=== PATIENT | female | born 1955 | race Caucasian/White ===

== ENCOUNTER 2021-10-24 08:47 | Inpatient (IN) ==
[2021-10-24] MEDS ORDERED: Naloxone 0.4 MG/ML INJ IVP PRN (11:21)
[2021-10-24] MEDS ORDERED: Ipratropium/Albuterol Neb 3 ML IH PRN (14:01)
[2021-10-24] MEDS ORDERED: *HR* Dextrose 50 % in Water (Syg) 50 ML SYRINGE IVP PRN (14:38)
[2021-10-24] MEDS ORDERED: Dextrose 4 GM Chewable Tablets PO PRN ×2 (14:38)
[2021-10-24] MEDS ORDERED: D5% in Water 1,000 ML IVC PRN (14:38)
[2021-10-24] MEDS ORDERED: tiZANidine 4 MG TABLET PO PRN (14:39)
[2021-10-24] MEDS: Gabapentin 400 MG CAPSULE PO SCH ×2 (17:24→20:25)
[2021-10-24] MEDS: Insulin LISPRO 300 UNITS/3 ML VIAL SUBQ SCH ×2 (17:25→20:23)
[2021-10-24] MEDS: MethylPREDNISolone 40 MG/ML VIAL IVP SCH ×2 (17:25→23:47)
[2021-10-24] MEDS ORDERED: Acetaminophen 325 MG TABLET PO PRN (18:00)
[2021-10-24] MEDS: rOPINIRole 1 MG TABLET PO SCH (20:25)
[2021-10-24] MEDS: Torsemide 20 MG TABLET PO SCH (20:26)
[2021-10-24] MEDS: traZODone 50 MG TABLET PO SCH (20:26)
[2021-10-24] MEDS ORDERED: Insulin DETEMIR 100 UNIT/ML X5UNITS SUBQ SCH (21:00)
[2021-10-25 02:32] LABS: Basophils % 0.2 %; Eosinophils % 0.2 %; Hematocrit 31.7 % (35.3-44.9); Hemoglobin 9.7 g/dL (11.5-15.4); Immature Granulocytes % 0.9 % (0-4); Lymphocytes # 0.7 K/mcL (0.6-4.6); Lymphocytes % 16.3 %; Mean Corpuscular HGB Conc 30.6 g/dL (31.6-35.5); Mean Corpuscular Hemoglobin 29.9 pg (28.0-33.3); Mean Corpuscular Volume 97.8 fL (83.0-100.0); Mean Platelet Volume 11.6 fL (9.4-12.4); Monocytes # 0.1 K/mcL (0.0-1.3); Monocytes % 2.3 %; Neutrophils # 3.5 K/mcL (1.6-8.9); Platelet Count 182 K/mcL (140-400); Red Blood Count 3.24 M/mcL (3.82-4.97); Red Cell Distribution Width 14.4 % (11.5-14.5); Segmented Neutrophils % 80.1 %; White Blood Count 4.4 K/mcL (4.3-11.1)
[2021-10-25 02:55] LABS: Calcium 8.6 mg/dL (8.6-10.3); Potassium 4.3 mEq/L (3.5-5.1)
[2021-10-25] MEDS: *HR* Enoxaparin 40 MG/0.4 ML SYRINGE SQ SCH (05:20)
[2021-10-25] MEDS: MethylPREDNISolone 40 MG/ML VIAL IVP SCH (08:46)
[2021-10-25] MEDS: Torsemide 20 MG TABLET PO SCH (08:47)
[2021-10-25] MEDS: Gabapentin 400 MG CAPSULE PO SCH ×4 (08:47→19:51)
[2021-10-25] MEDS: Insulin LISPRO 300 UNITS/3 ML VIAL SUBQ SCH ×4 (08:47→19:54)
[2021-10-25] MEDS ORDERED: cefTRIAXone 1,000 MG in 0.9 % Sodium Chloride 10 ML IVP SCH (09:00)
[2021-10-25] MEDS: Insulin DETEMIR 100 UNIT/ML X5UNITS SUBQ SCH ×2 (09:40→19:51)
[2021-10-25] MEDS ORDERED: Semaglutide [Ozempic] 0.25 MG/0.2 ML SQ SCH (17:00)
[2021-10-25] MEDS: rOPINIRole 1 MG TABLET PO SCH (19:51)
[2021-10-25] MEDS: traZODone 50 MG TABLET PO SCH (19:51)
[2021-10-26 03:13] LABS: Basophils % 0.5 %; Hematocrit 31.3 % (35.3-44.9); Hemoglobin 9.9 g/dL (11.5-15.4); Immature Granulocytes % 1.2 % (0-4); Lymphocytes # 1.1 K/mcL (0.6-4.6); Lymphocytes % 27.3 %; Mean Corpuscular HGB Conc 31.6 g/dL (31.6-35.5); Mean Corpuscular Hemoglobin 30.1 pg (28.0-33.3); Mean Corpuscular Volume 95.1 fL (83.0-100.0); Monocytes # 0.5 K/mcL (0.0-1.3); Monocytes % 10.8 %; Neutrophils # 2.5 K/mcL (1.6-8.9); Platelet Count 207 K/mcL (140-400); Red Blood Count 3.29 M/mcL (3.82-4.97); Red Cell Distribution Width 13.9 % (11.5-14.5); Segmented Neutrophils % 60.2 %; White Blood Count 4.2 K/mcL (4.3-11.1)
[2021-10-26 03:37] LABS: Potassium 4.1 mEq/L (3.5-5.1)
[2021-10-26] MEDS: *HR* Enoxaparin 40 MG/0.4 ML SYRINGE SQ SCH (06:10)
[2021-10-26] MEDS: MethylPREDNISolone 40 MG/ML VIAL IVP SCH (08:31)
[2021-10-26] MEDS: Gabapentin 400 MG CAPSULE PO SCH ×4 (08:32→21:41)
[2021-10-26] MEDS: Insulin DETEMIR 100 UNIT/ML X5UNITS SUBQ SCH ×2 (08:32→21:40)
[2021-10-26] MEDS: Insulin LISPRO 300 UNITS/3 ML VIAL SUBQ SCH ×4 (08:32→21:40)
[2021-10-26] MEDS: 0.9 % Sodium Chloride 1,000 ML IVC SCH (10:27)
[2021-10-26] MEDS: *HR* OxyCODONE Immed Rel 15 MG TABLET PO PRN ×2 (10:51→21:41)
[2021-10-26] MEDS: Ipratropium/Albuterol Neb 3 ML IH SCH ×4 (11:16→23:54)
[2021-10-26] MEDS ORDERED: Ondansetron 4 MG/2 ML VIAL IVP PRN (11:50)
[2021-10-26] MEDS: Ondansetron 4 MG/2 ML VIAL IVP PRN (12:06)
[2021-10-26] MEDS: Benzonatate 100 MG CAPSULE PO PRN (12:16)
[2021-10-26] MEDS: rOPINIRole 1 MG TABLET PO SCH (21:41)
[2021-10-26] MEDS: traZODone 50 MG TABLET PO SCH (21:41)
[2021-10-27] MEDS: 0.9 % Sodium Chloride 1,000 ML IVC SCH (00:06)
[2021-10-27] MEDS: Ipratropium/Albuterol Neb 3 ML IH SCH ×5 (03:43→20:09)
[2021-10-27] MEDS: *HR* Enoxaparin 40 MG/0.4 ML SYRINGE SQ SCH (05:28)
[2021-10-27 07:53] LABS: Basophils % 0.2 %; Eosinophils % 0.4 %; Hematocrit 32.7 % (35.3-44.9); Hemoglobin 10.1 g/dL (11.5-15.4); Immature Granulocytes % 1.1 % (0-4); Lymphocytes # 1.7 K/mcL (0.6-4.6); Lymphocytes % 32.8 %; Mean Corpuscular HGB Conc 30.9 g/dL (31.6-35.5); Mean Corpuscular Hemoglobin 29.6 pg (28.0-33.3); Mean Corpuscular Volume 95.9 fL (83.0-100.0); Mean Platelet Volume 11.7 fL (9.4-12.4); Monocytes # 0.4 K/mcL (0.0-1.3); Monocytes % 6.9 %; Neutrophils # 3.1 K/mcL (1.6-8.9); Platelet Count 209 K/mcL (140-400); Red Blood Count 3.41 M/mcL (3.82-4.97); Red Cell Distribution Width 14.3 % (11.5-14.5); Segmented Neutrophils % 58.6 %; White Blood Count 5.2 K/mcL (4.3-11.1)
[2021-10-27] MEDS: Gabapentin 400 MG CAPSULE PO SCH ×4 (08:24→20:52)
[2021-10-27] MEDS: Insulin LISPRO 300 UNITS/3 ML VIAL SUBQ SCH ×4 (08:25→20:55)
[2021-10-27] MEDS: Insulin DETEMIR 100 UNIT/ML X5UNITS SUBQ SCH ×2 (08:25→20:55)
[2021-10-27] MEDS: MethylPREDNISolone 40 MG/ML VIAL IVP SCH (08:25)
[2021-10-27 09:38] LABS: Calcium 8.8 mg/dL (8.6-10.3); Potassium 4.6 mEq/L (3.5-5.1)
[2021-10-27] MEDS: Ondansetron 4 MG/2 ML VIAL IVP PRN (12:39)
[2021-10-27] MEDS: rOPINIRole 1 MG TABLET PO SCH (20:52)
[2021-10-27] MEDS: traZODone 50 MG TABLET PO SCH (20:53)
[2021-10-27] MEDS: *HR* OxyCODONE Immed Rel 15 MG TABLET PO PRN (20:54)
[2021-10-28] MEDS: Ipratropium/Albuterol Neb 3 ML IH SCH ×6 (00:06→20:40)
[2021-10-28] MEDS: *HR* Enoxaparin 40 MG/0.4 ML SYRINGE SQ SCH (05:34)
[2021-10-28 06:06] LABS: Basophils % 0.4 %; Eosinophils % 0.1 %; Hematocrit 35.4 % (35.3-44.9); Hemoglobin 10.6 g/dL (11.5-15.4); Lymphocytes # 1.6 K/mcL (0.6-4.6); Lymphocytes % 21.5 %; Mean Corpuscular HGB Conc 29.9 g/dL (31.6-35.5); Mean Corpuscular Volume 100.3 fL (83.0-100.0); Mean Platelet Volume 11.8 fL (9.4-12.4); Monocytes # 0.6 K/mcL (0.0-1.3); Monocytes % 7.7 %; Neutrophils # 5.1 K/mcL (1.6-8.9); Platelet Count 243 K/mcL (140-400); Red Blood Count 3.53 M/mcL (3.82-4.97); Red Cell Distribution Width 14.3 % (11.5-14.5); Segmented Neutrophils % 68.3 %; White Blood Count 7.4 K/mcL (4.3-11.1)
[2021-10-28 06:38] LABS: Calcium 9.2 mg/dL (8.6-10.3); Potassium 4.5 mEq/L (3.5-5.1)
[2021-10-28] MEDS: Insulin LISPRO 300 UNITS/3 ML VIAL SUBQ SCH ×4 (09:23→21:57)
[2021-10-28] MEDS: Gabapentin 400 MG CAPSULE PO SCH ×4 (09:25→21:58)
[2021-10-28] MEDS: MethylPREDNISolone 40 MG/ML VIAL IVP SCH ×2 (09:25→17:22)
[2021-10-28] MEDS: Insulin DETEMIR 100 UNIT/ML X5UNITS SUBQ SCH ×2 (09:37→21:57)
[2021-10-28] MEDS: traZODone 50 MG TABLET PO SCH (21:59)
[2021-10-28] MEDS: rOPINIRole 1 MG TABLET PO SCH (21:59)
[2021-10-28 23:08] LABS: ABG Base Excess 3 mEq/L (-2 to 3); ABG HCO3 32 mEq/L (21-27); ABG Oxygen Saturation 89 % (95-98); ABG PCO2 69 mmHg (35-45); ABG PH 7.28 pH Units (7.32-7.45); ABG PO2 66 mmHg (85-104); ABG TCO2 34 mEq/L (20-26); Blood Gas Modality BiLevel; Blood Gas VT 490 cc
[2021-10-29] MEDS: Ipratropium/Albuterol Neb 3 ML IH SCH ×7 (00:47→23:27)
[2021-10-29 01:04] LABS: ABG Base Excess 6 mEq/L (-2 to 3); ABG HCO3 35 mEq/L (21-27); ABG Oxygen Saturation 86 % (95-98); ABG PCO2 74 mmHg (35-45); ABG PH 7.28 pH Units (7.32-7.45); ABG PO2 61 mmHg (85-104); ABG TCO2 37 mEq/L (20-26)
[2021-10-29 02:54] LABS: Basophils % 0.1 %; Hematocrit 33.5 % (35.3-44.9); Hemoglobin 10.1 g/dL (11.5-15.4); Immature Granulocytes % 1.2 % (0-4); Lymphocytes # 0.7 K/mcL (0.6-4.6); Lymphocytes % 5.6 %; Mean Corpuscular HGB Conc 30.1 g/dL (31.6-35.5); Mean Corpuscular Hemoglobin 30.1 pg (28.0-33.3); Mean Corpuscular Volume 99.7 fL (83.0-100.0); Mean Platelet Volume 11.8 fL (9.4-12.4); Monocytes # 0.6 K/mcL (0.0-1.3); Neutrophils # 10.6 K/mcL (1.6-8.9); Platelet Count 228 K/mcL (140-400); Red Blood Count 3.36 M/mcL (3.82-4.97); Red Cell Distribution Width 14.3 % (11.5-14.5); Segmented Neutrophils % 88.1 %
[2021-10-29 03:11] LABS: Calcium 8.9 mg/dL (8.6-10.3); Potassium 5.2 mEq/L (3.5-5.1)
[2021-10-29 05:26] LABS: ABG Base Excess 7 mEq/L (-2 to 3); ABG HCO3 33 mEq/L (21-27); ABG Oxygen Saturation 96 % (95-98); ABG PCO2 54 mmHg (35-45); ABG PH 7.39 pH Units (7.32-7.45); ABG PO2 87 mmHg (85-104); ABG TCO2 35 mEq/L (20-26); Blood Gas VT 614 cc
[2021-10-29] MEDS: MethylPREDNISolone 40 MG/ML VIAL IVP SCH ×2 (06:22→17:00)
[2021-10-29] MEDS: *HR* Enoxaparin 40 MG/0.4 ML SYRINGE SQ SCH (06:23)
[2021-10-29] MEDS: Insulin DETEMIR 100 UNIT/ML X5UNITS SUBQ SCH ×2 (07:40→20:02)
[2021-10-29] MEDS: Insulin LISPRO 300 UNITS/3 ML VIAL SUBQ SCH ×4 (07:41→20:12)
[2021-10-29] MEDS: 0.9 % Sodium Chloride 1,000 ML IVC SCH (07:51)
[2021-10-29] MEDS ORDERED: Insulin LISPRO 300 UNITS/3 ML VIAL SUBQ ONE (16:11)
[2021-10-29] MEDS: Benzonatate 100 MG CAPSULE PO PRN (20:01)
[2021-10-29] MEDS: *HR* OxyCODONE Immed Rel 15 MG TABLET PO PRN (20:01)
[2021-10-29] MEDS: traZODone 50 MG TABLET PO SCH (20:01)
[2021-10-29] MEDS: rOPINIRole 1 MG TABLET PO SCH (20:01)
[2021-10-29] MEDS: Torsemide 20 MG TABLET PO SCH (20:02)
[2021-10-30] MEDS: Ipratropium/Albuterol Neb 3 ML IH SCH ×6 (03:35→23:36)
[2021-10-30] MEDS: MethylPREDNISolone 40 MG/ML VIAL IVP SCH (05:07)
[2021-10-30] MEDS: *HR* Enoxaparin 40 MG/0.4 ML SYRINGE SQ SCH (05:07)
[2021-10-30] MEDS: Insulin LISPRO 300 UNITS/3 ML VIAL SUBQ SCH ×4 (07:21→20:59)
[2021-10-30] MEDS: Torsemide 20 MG TABLET PO SCH ×2 (07:21→20:58)
[2021-10-30] MEDS: Insulin DETEMIR 100 UNIT/ML X5UNITS SUBQ SCH ×2 (07:21→21:04)
[2021-10-30] MEDS: Ondansetron 4 MG/2 ML VIAL IVP PRN (07:35)
[2021-10-30 09:17] LABS: Basophils % 0.2 %; Hematocrit 35.8 % (35.3-44.9); Hemoglobin 11.2 g/dL (11.5-15.4); Immature Granulocytes % 2.1 % (0-4); Lymphocytes # 1.1 K/mcL (0.6-4.6); Lymphocytes % 9.4 %; Mean Corpuscular HGB Conc 31.3 g/dL (31.6-35.5); Mean Corpuscular Hemoglobin 30.6 pg (28.0-33.3); Mean Corpuscular Volume 97.8 fL (83.0-100.0); Mean Platelet Volume 12.1 fL (9.4-12.4); Monocytes # 0.4 K/mcL (0.0-1.3); Monocytes % 3.7 %; Neutrophils # 9.5 K/mcL (1.6-8.9); Platelet Count 231 K/mcL (140-400); Red Blood Count 3.66 M/mcL (3.82-4.97); Red Cell Distribution Width 14.2 % (11.5-14.5); Segmented Neutrophils % 84.6 %; White Blood Count 11.2 K/mcL (4.3-11.1)
[2021-10-30 09:30] LABS: Calcium 9.6 mg/dL (8.6-10.3); Potassium 4.8 mEq/L (3.5-5.1)
[2021-10-30] MEDS ORDERED: Menthol 1 EACH LOZENGE PO PRN (15:16)
[2021-10-30] MEDS ORDERED: predniSONE 20 MG TABLET PO ONE (18:00)
[2021-10-30] MEDS: traZODone 50 MG TABLET PO SCH (20:58)
[2021-10-30] MEDS: rOPINIRole 1 MG TABLET PO SCH (20:58)
[2021-10-31 02:48] LABS: Basophils % 0.3 %; Eosinophils % 0.1 %; Hematocrit 34.7 % (35.3-44.9); Hemoglobin 10.6 g/dL (11.5-15.4); Immature Granulocytes % 2.2 % (0-4); Lymphocytes # 0.9 K/mcL (0.6-4.6); Lymphocytes % 8.9 %; Mean Corpuscular HGB Conc 30.5 g/dL (31.6-35.5); Mean Corpuscular Hemoglobin 29.3 pg (28.0-33.3); Mean Corpuscular Volume 95.9 fL (83.0-100.0); Mean Platelet Volume 12.3 fL (9.4-12.4); Monocytes # 0.5 K/mcL (0.0-1.3); Monocytes % 4.9 %; Platelet Count 251 K/mcL (140-400); Red Blood Count 3.62 M/mcL (3.82-4.97); Red Cell Distribution Width 13.8 % (11.5-14.5); Segmented Neutrophils % 83.6 %; White Blood Count 9.6 K/mcL (4.3-11.1)
[2021-10-31 02:56] LABS: Calcium 9.3 mg/dL (8.6-10.3); Potassium 4.5 mEq/L (3.5-5.1)
[2021-10-31] MEDS: Ipratropium/Albuterol Neb 3 ML IH SCH ×6 (04:29→23:28)
[2021-10-31] MEDS: *HR* Enoxaparin 40 MG/0.4 ML SYRINGE SQ SCH (05:12)
[2021-10-31] MEDS: Insulin LISPRO 300 UNITS/3 ML VIAL SUBQ SCH ×4 (08:08→20:25)
[2021-10-31] MEDS: Torsemide 20 MG TABLET PO SCH ×2 (08:13→20:24)
[2021-10-31] MEDS: Insulin DETEMIR 100 UNIT/ML X5UNITS SUBQ SCH ×2 (08:27→20:25)
[2021-10-31] MEDS: *HR* OxyCODONE Immed Rel 15 MG TABLET PO PRN (08:33)
[2021-10-31] MEDS ORDERED: Perflutren Lipid Microsphere 1.3 ML in 0.9 % Sodium Chloride 8.7 ML IVP PRN (09:59)
[2021-10-31] MEDS ORDERED: Insulin LISPRO 300 UNITS/3 ML VIAL SUBQ ONE (17:35)
[2021-10-31] MEDS: rOPINIRole 1 MG TABLET PO SCH (20:24)
[2021-10-31] MEDS: traZODone 50 MG TABLET PO SCH (21:14)
[2021-11-01 02:03] LABS: Basophils % 0.2 %; Eosinophils # 0.1 K/mcL (0.0-0.6); Eosinophils % 0.9 %; Hematocrit 34.3 % (35.3-44.9); Hemoglobin 10.5 g/dL (11.5-15.4); Immature Granulocytes % 1.5 % (0-4); Lymphocytes # 2.4 K/mcL (0.6-4.6); Lymphocytes % 27.6 %; Mean Corpuscular HGB Conc 30.6 g/dL (31.6-35.5); Mean Corpuscular Hemoglobin 29.3 pg (28.0-33.3); Mean Corpuscular Volume 95.8 fL (83.0-100.0); Mean Platelet Volume 11.9 fL (9.4-12.4); Monocytes # 0.7 K/mcL (0.0-1.3); Monocytes % 7.8 %; Neutrophils # 5.4 K/mcL (1.6-8.9); Platelet Count 262 K/mcL (140-400); Red Blood Count 3.58 M/mcL (3.82-4.97); White Blood Count 8.7 K/mcL (4.3-11.1)
[2021-11-01 02:26] LABS: Calcium 9.1 mg/dL (8.6-10.3); Potassium 3.8 mEq/L (3.5-5.1)
[2021-11-01] MEDS: Ipratropium/Albuterol Neb 3 ML IH SCH ×6 (03:59→23:19)
[2021-11-01] MEDS: *HR* Enoxaparin 40 MG/0.4 ML SYRINGE SQ SCH (05:50)
[2021-11-01] MEDS: Insulin LISPRO 300 UNITS/3 ML VIAL SUBQ SCH ×4 (08:52→20:43)
[2021-11-01] MEDS: Insulin DETEMIR 100 UNIT/ML X5UNITS SUBQ SCH ×2 (08:54→20:43)
[2021-11-01] MEDS: predniSONE 20 MG TABLET PO SCH (09:01)
[2021-11-01] MEDS ORDERED: Menthol 1 EACH LOZENGE PO PRN (13:58)
[2021-11-01] MEDS: rOPINIRole 1 MG TABLET PO SCH (20:43)
[2021-11-01] MEDS: traZODone 50 MG TABLET PO SCH (20:43)
[2021-11-02] MEDS: Insulin LISPRO 300 UNITS/3 ML VIAL SUBQ SCH ×3 (00:32→11:58)
[2021-11-02] MEDS: Ipratropium/Albuterol Neb 3 ML IH SCH ×2 (04:19→07:14)
[2021-11-02 04:30] LABS: Calcium 8.9 mg/dL (8.6-10.3); Potassium 5.1 mEq/L (3.5-5.1)
[2021-11-02] MEDS: *HR* Enoxaparin 40 MG/0.4 ML SYRINGE SQ SCH (05:44)
[2021-11-02] MEDS: Insulin DETEMIR 100 UNIT/ML X5UNITS SUBQ SCH (08:08)
[2021-11-02] MEDS: predniSONE 20 MG TABLET PO SCH (08:08)
[2021-11-02] MEDS: *HR* OxyCODONE Immed Rel 15 MG TABLET PO PRN (08:23)
[2021-11-02 11:24] VITALS: BP 152/59; PULSE 94; TEMP 98.7; O2SAT 92
[2021-11-24] MEDS ORDERED: Patient Taking Own Medication 1 EACH SQ SCH (16:15)
== END 2021-11-02 12:36 | disposition home or self-care (01) | DRG 871 ==
LOC: 2NENU → SUATTDRO 11:21
PROVIDERS: ADMIT Internal Medicine; ATTEND Internal Medicine